=== PATIENT | female | born 1985 | race Hispanic/Latino ===

== ENCOUNTER 2019-12-16 11:54 | Inpatient (IN) | payer OTHER, MEDICAID ==
[~2019-12-16] VITALS: Ht 160 cm; Wt 89.4 kg
[2019-12-16 12:49] VITALS: BP 157/85
[2019-12-16] MEDS: LACTATED RINGERS 1000ML 1,000 ML IV PRN ×2 (13:05→22:54)
[2019-12-16 13:27] LABS: BASOPHILS % (AUTO) 0.2 % (0.0-5.0); EOSINOPHILS % (AUTO) 0.2 % (0.0-8.0); HEMATOCRIT 35.8 % (36-48); MEAN CORPUSCULAR HEMOGLOBIN 31.3 pg (27.0-33.0); MEAN CORPUSCULAR HGB CONC 34.4 g/dL (32.0-36.0); MEAN CORPUSCULAR VOLUME 91.1 fL (79-99); MONOCYTES % (AUTO) 3.9 % (3.0-13.0); NEUTROPHILS % (AUTO) 74.5 % (40.0-77.0); PLATELET COUNT (AUTO) 235 K/uL (130-400); RED BLOOD CELL COUNT(AUTO) 3.93 MIL/uL (4.00-5.50); WHITE BLOOD COUNT (AUTO) 8.4 K/uL (4.8-10.8)
[2019-12-16 13:28] LABS: APPEARANCE,URINE Clear (CLEAR); BILIRUBIN,URINE Negative (NEGATIVE); COLOR,URINE Yellow (YELLOW); GLUCOSE, URINE (UA) Negative (NEGATIVE); KETONES,URINE Negative (NEGATIVE); LEUKOCYTE ESTERASE ,URINE Small (NEGATIVE); NITRATE,URINE Negative (NEGATIVE); OCCULT BLOOD,URINE Negative (NEGATIVE); PROTEIN,URINE Negative (NEGATIVE); UROBILINOGEN,URINE 0.2 mg/dL (0.2-1.0)
[2019-12-16 13:37] LABS: CREATININE 0.6 mg/dL (0.5-1.5); POTASSIUM 3.7 mmol/L (3.5-5.1)
[2019-12-16 13:39] LABS: INR 0.88 (0.85-1.15); PARTIAL THROMBOPLASTIN TIME 27.5 SEC (26.3-35.5); PROTHROMBIN TIME 9.5 SEC (9.6-11.6)
[2019-12-16 13:42] LABS: ALBUMIN 2.5 g/dL (3.5-5.0); BILIRUBIN,TOTAL 0.2 mg/dL (0.2-1.0); TOTAL PROTEIN, SERUM 6.9 g/dL (6.0-8.3); URIC ACID 4.5 mg/dL (2.6-7.2)
[2019-12-16 13:49] LABS: BACTERIA,URINE Few /HPF (None Seen); RBC,URINE 0-1 /HPF (0-1)
[2019-12-16] MEDS ORDERED: LACTATED RINGERS 500 ML 500 ML IV PRN (14:15)
[2019-12-16] MEDS ORDERED: ROPIVACAINE 0.2% 100ML VIAL 100 ML EP SCH (14:15)
[2019-12-16] MEDS ORDERED: BUTORPHANOL TARTRATE 2 MG/ML IVP PRN (14:15)
[2019-12-16] MEDS ORDERED: NALOXONE HCL 0.4 MG/1 ML ML IV PRN (14:15)
[2019-12-16] MEDS ORDERED: EPHEDRINE SULFATE 50 MG/ML AMPULE IVP PRN (14:15)
[2019-12-16] MEDS ORDERED: AMPICILLIN 2GM+NS 100ML 100 ML IV SCH (15:00)
[2019-12-16] MEDS ORDERED: AMPICILLIN 2GM+NS 100ML 100 ML IV ONE (15:08)
[2019-12-16] MEDS: MISOPROSTOL 100 MCG TABLET VG SCH (15:15)
[2019-12-16] MEDS: AMPICILLIN 1GM+NS 50ML 50 ML IV SCH (22:53)
[2019-12-17] MEDS: AMPICILLIN 1GM+NS 50ML 50 ML IV SCH ×2 (02:46→07:04)
[2019-12-17] MEDS ORDERED: OXYTOCIN-LR 20 UNITS/1000 ML 1,000 ML IV ONE ×2 (04:22→11:32)
[2019-12-17] MEDS ORDERED: OXYTOCIN 10 USP UNITS/ML 20 UNIT in LACTATED RINGERS 1000ML 1,000 ML IV SCH (05:00)
[2019-12-17] MEDS ORDERED: PROMETHAZINE HCL 25 MG/ML 1ML AMPULE IM SCH (07:00)
[2019-12-17] MEDS ORDERED: MEPERIDINE-PF 50 MG/ML SYG IVP SCH (07:00)
[2019-12-17] MEDS ORDERED: MEPERIDINE-PF 50 MG/ML SYG ONE (07:01)
[2019-12-17 08:10] LABS: HEPATITIS Bs ANTIGEN SCREEN P Negative (Negative)
[2019-12-17] MEDS ORDERED: BENZOCAINE/LANOLIN/ALOE VERA 60 ML AEROSOL TP PRN (11:30)
[2019-12-17] MEDS ORDERED: LANOLIN 30GM OINTMENT TP PRN (11:30)
[2019-12-17] MEDS ORDERED: WITCH HAZEL 1 PAD TP PRN (11:30)
[2019-12-17] MEDS ORDERED: ACETAMINOPHEN-CODEINE 300/30MG TAB PO PRN (11:30)
[2019-12-17] MEDS ORDERED: ACETAMINOPHEN 325 MG TAB PO PRN (11:30)
[2019-12-17] MEDS ORDERED: MEASLES/MUMPS/RUBELLA VACCINE, LIVE 0.5 ML/VIAL SQ PRN (11:30)
[2019-12-17] MEDS ORDERED: DIPH,PERTUSS(ACELL),TET VAC/PF 0.5 ML VIAL IM PRN (11:30)
[2019-12-17 11:50] VITALS: BP 144/75
[2019-12-17] MEDS ORDERED: ASPI-556 PO (11:54)
[2019-12-17] MEDS ORDERED: METF-446 PO (11:54)
[2019-12-17] MEDS ORDERED: ACYC200C PO (11:54)
[2019-12-17] MEDS: IBUPROFEN 600 MG TABLET PO PRN (13:46)
[2019-12-17 16:19] VITALS: BP 132/84
[2019-12-17 19:37] VITALS: BP 145/75
[2019-12-17] MEDS: MISOPROSTOL 100 MCG TABLET VG SCH (20:15)
[2019-12-17] MEDS: DOCUSATE SODIUM 100 MG CAP PO SCH (21:11)
[2019-12-17 23:24] VITALS: BP 138/71
[2019-12-18 03:19] VITALS: BP 141/77
[2019-12-18] MEDS: IBUPROFEN 600 MG TABLET PO PRN (03:43)
[2019-12-18 05:27] LABS: HEMATOCRIT 30.9 % (36-48); MEAN CORPUSCULAR HEMOGLOBIN 31.5 pg (27.0-33.0); MEAN CORPUSCULAR HGB CONC 34.3 g/dL (32.0-36.0); PLATELET COUNT (AUTO) 226 K/uL (130-400); RED BLOOD CELL COUNT(AUTO) 3.36 MIL/uL (4.00-5.50); RED CELL DISTRIBUTION WIDTH 13.1 % (11.0-15.5); WHITE BLOOD COUNT (AUTO) 8.9 K/uL (4.8-10.8)
[2019-12-18 07:31] VITALS: BP 141/85
[2019-12-18] MEDS: DOCUSATE SODIUM 100 MG CAP PO SCH (08:58)
[2019-12-18 11:34] VITALS: BP 136/82
--- NOTE | 2019-12-18 14:20 | NUR ---
DISCHARGE PT LEFT UNIT VIA WHEELCHAIR, WITH BABY IN ARMS, ACCOMPANIED BY FAMILY. DENIED PAIN AND HAD NO COMPLAINTS. BABY STRAPPED IN CAR SEAT. PT AND BABY TRANSPORTED BY PERSONAL VEHICLE.
[2020-02-06] MEDS ORDERED: MV-M1TAB66 PO (09:18)
== END 2019-12-18 14:20 | disposition home or self-care (01) | DRG 807 ==
LOC: EDH 11:54 → LDH 12:18 → OBSVTOIN 12:18 → WSH 12-17 11:40
PROVIDERS: ADMIT Obstetrics & Gynecology; ATTEND Obstetrics & Gynecology
PROC: 10E0XZZ Delivery of Products of Conception, External Approach (ICD-10-PCS; principal; 2019-12-17)
PROC: 10907ZC Drainage of Amniotic Fluid, Therapeutic from Products of Conception, Via Natural or Artificial Opening (ICD-10-PCS; 2019-12-17)
PROC: 3E0234Z Introduction of Serum, Toxoid and Vaccine into Muscle, Percutaneous Approach (ICD-10-PCS; 2019-12-17)
PROC: 3E0134Z Introduction of Serum, Toxoid and Vaccine into Subcutaneous Tissue, Percutaneous Approach (ICD-10-PCS; 2019-12-17)
DX: O14.03 Mild to moderate pre-eclampsia, third trimester (principal); Z37.0 Single live birth; Z3A.37 37 weeks gestation of pregnancy; Z23 Encounter for immunization; O99.824 Streptococcus B carrier state complicating childbirth; O24.429 Gestational diabetes mellitus in childbirth, unspecified control
CPT/HCPCS: 36415; 80053; 81001; 82948; 84550; 85025; 85027; 85384; 85610; 85730; 86592; 86850; 86900; 86901; 87340; 90715; A4351; A4606; G0378; J0290; J2175; J2550; J2590; J7120

== ENCOUNTER 2020-02-09 05:44 | Day surgery (SDC) | payer OTHER, MEDICAID ==
[2020-02-05 16:00] VITALS: BP_SYST 160; BP_SYST 184; BP_DIAS 185; BP_DIAS 75
[2020-02-05 16:35] LABS: BASOPHILS % (AUTO) 0.4 % (0.0-5.0); EOSINOPHILS % (AUTO) 1.7 % (0.0-8.0); HEMATOCRIT 37.7 % (36-48); LYMPHOCYTES % (AUTO) 35.6 % (21.0-51.0); MEAN CORPUSCULAR HEMOGLOBIN 30.5 pg (27.0-33.0); MEAN CORPUSCULAR HGB CONC 32.4 g/dL (32.0-36.0); MEAN CORPUSCULAR VOLUME 94.3 fL (79-99); PLATELET COUNT (AUTO) 268 K/uL (130-400); RED CELL DISTRIBUTION WIDTH 12.6 % (11.0-15.5); WHITE BLOOD COUNT (AUTO) 7.6 K/uL (4.8-10.8)
[2020-02-09] VITALS (17 sets, daily range): BP systolic 133–156; BP diastolic 77–96
[~2020-02-09] VITALS: Ht 157.5 cm; Wt 86.4 kg
[~2020-02-09 05:44] MED LIST: LACTATED RINGERS 1000ML 1,000 ML IV SCH; MV-M1TAB66 PO
[2020-02-09] MEDS: CEFAZOLIN SODIUM 1 GM VIAL IVP SCH ×2 (06:00→07:45)
[2020-02-09] MEDS ORDERED: CALDOLOR 800MG+NS 250ML 250 ML IV ONE (06:54)
[2020-02-09] MEDS ORDERED: LIDOCAINE PF 2% 5ML ABBOJECT ONE (07:30)
[2020-02-09] MEDS ORDERED: ONDANSETRON HCL 4 MG/2 ML VIAL ONE (07:30)
[2020-02-09] MEDS ORDERED: DEXAMETHASONE SOD PHOSPHATE 10MG/ML 1ML VIAL ONE (07:30)
[2020-02-09] MEDS ORDERED: PROPOFOL 10 MG/ML 20ML VIAL IV ONE (07:30)
[2020-02-09] MEDS ORDERED: MIDAZOLAM HCL 1 MG/ML 2ML VIAL ONE (07:30)
[2020-02-09] MEDS ORDERED: FENTANYL CITRATE PF 50 MCG/1 ML 2ML VIAL ONE (07:31)
[2020-02-09] MEDS ORDERED: BUPIVACAINE/PF 0.25% 30ML VIAL IJ ONE (07:51)
== END 2020-02-09 10:07 | disposition home or self-care (01) ==
LOC: DAH 05:44
PROVIDERS: ATTEND Obstetrics & Gynecology
DX: Z30.2 Encounter for sterilization (principal)
CPT/HCPCS: 36415 ×2; 58670; 84703; 85025; 86850 ×2; 86900 ×2; 86901 ×2; A4215; A4221; A4222; A4223; A4351; A4663; A6260; C1769 ×2; G0168; J0690; J1100; J1741; J2001; J2250; J2405; J2704; J3010; J3490; J7030; J7120; U0003